=== PATIENT | female | born 1970 | race Asian ===

== ENCOUNTER 2020-10-08 10:28 | Day surgery (SDC) | payer OTHER ==
[2020-10-02 13:12] LABS: Hematocrit 36.9 % (30.3-42.9); Mean Corpuscular HGB Conc 33 % (30-34); Mean Corpuscular Volume 85 fl (79-97); Platelet Count 189 K/mm3 (140-440); Red Blood Count 4.32 M/mm3 (3.65-5.03); Red Cell Distribution Width 15.4 % (13.2-15.2)
[2020-10-02 14:26] LABS: Total Cells Counted 100
[2020-10-02 14:28] LABS: Anisocytosis 1+
[2020-10-02 14:29] LABS: Ovalocytes Few; Platelet Estimate Consistent w Auto; Poikilocytosis 1+
--- NOTE | 2020-10-05 19:19 | History and Physical Report ---
History of Present Illness Date of examination: 10/02/20 Chief complaint: Menorrhagia History of present illness: Past History : 5 Term Births: 4 Living Children: 4 Spont. Ab: 1 # 1 Delivery date: 1997 Comments: x3 [id number] [employer]IST History Operations: BTL Appendectomy Breast Biopsy: (2007)fibroadenoma; removed 2010 Dr.Timbert storm Abnormal PAP: positive Infection History HIV Risk Eval: yes Hx of STD: None Active Medications (reviewed today): VITAMIN D (CHOLECALCIFEROL) 25 MCG (1000 UT) ORAL CAPSULE (CHOLECALCIFEROL) EXCEDRIN MIGRAINE TABLET ([id number] TABS) HEMAX TABLET ([id number] TABS) Current Allergies (reviewed today): No known allergies Past Medical History: Reviewed history from 02/27/2020 and no changes required: h/o Anemia s/p 5 weeks of iron infusion low WBC h/o +Covid-19(12/2019) Past Surgical History: Reviewed history from 01/05/2013 and no changes required: BTL Appendectomy Breast Biopsy: (2007)fibroadenoma; removed 2010 left Family History Summary: Reviewed history Last on 04/17/2020 and no changes required:10/05/2020 Other Family Member - Has No Family History of Uterine Cancer - Entered On: 04/12/2017 Other Family Member - Has No Family History of Small Bowel Cancer - Entered On: 04/12/2017 Other Family Member - Has No Family History of Stomach Cancer - Entered On: 04/12/2017 Other Family Member - Has No Family History of Pancreatic Cancer - Entered On: 04/12/2017 Other Family Member - Has No Family History of Ovarvian Cancer - Entered On: 04/12/2017 Other Family Member - Has No Family History of Kidney/Urinary Tract Cancer - Entered On: 04/12/2017 Other Family Member - Has No Family History of DVT/PE on OCP - Entered On: 04/12/2017 Other Family Member - Has No Family History of Colon Cancer - Entered On: 04/12/2017 Other Family Member - Has No Family History of Brain Cancer - Entered On: 04/12/2017 Other Family Member - Has No Family History of Breast Cancer - Entered On: 04/12/2017 Other Family Member - Has No Family History of Biliary Tract Cancer - Entered On: 04/12/2017 General Comments - FH: No Family History of Breast Cancer No Family History of Colon Cancer No Family History of Ovarian Cancer No Family History of DVT/PE on OCP Social History: Reviewed history from 03/26/2017 and no changes required: Patient is Smoking History: Patient has never smoked. Risk Factors: Smoked Tobacco Use: Never smoker Smokeless Tobacco Use: Never Passive smoke exposure: no Drug use: no HIV high-risk behavior: yes Alcohol use: no Exercise: no Seatbelt use: 100 % PAP Smear History: Date of Last PAP Smear: 04/17/2020 Mammogram History: Date of Last Mammogram: 04/23/2020 Previous Tobacco Use: Signed On 07/04/2020 Smoked Tobacco Use: Never smoker Smokeless Tobacco Use: Never Passive smoke exposure: no Drug use: no HIV high-risk behavior: yes Previous Alcohol Use: Signed On 07/04/2020 Alcohol use: no Exercise: no Seatbelt use: 100 % PAP Smear History: Date of Last PAP Smear: 04/17/2020 Mammogram History: Date of Last Mammogram: 04/23/2020 Physical Exam Appearance: well developed, well nourished, no acute distress Other Exams Lungs: no rales, rhonchi, or wheezes Heart: S1, S2, no murmur, rub, or gallop Genitourinary Exam Uterus: deferred for EUA Impression & Recommendations: Problem # 1: Menorrhagia (ICD-626.2) ([id number]-P52.0) Diagnosis explained to patient . Questions answered. Discussed with patient various medical and surgical therapies common for treatment: Hormonal/medical therapy,endometrial ablation or hysterectomy. She desires hysteroscopy with dilation and curettage. She declines ablation at this time. Consent reviewed and signed . Possible laparoscopy or laparotomy explained to patient. The risks and alternatives for this surgery were reviewed with the patient. She was informed of possible bleeding, infection, injury to bowel, bladder, ureters or other adjacent organs. The patient was instructed/informed the following: The normal length of hospital stay for this procedure. Nothing to eat or drink after midnight the evening prior to surgery. Pre-op instruction sheets given. Wound care instructions given. Infection precautions reviewed, patient to call for any signs or symptoms of infection. The usual discomforts associated with this procedure were detailed. Proper use of pain medicines was reviewed. Patient was given ample opportunity to have all her questions answered before signing informed consent. Medications and Allergies Allergies Allergy/AdvReac Type Severity Reaction Status Date / Time No Known Allergies Allergy Unverified 10/01/20 18:42 Home Medications Medication Instructions Recorded Confirmed Last Taken Type Iron [Iron 18 MG TAB] 18 mg PO QDAY 10/01/20 10/01/20 Unknown History Active Meds: Active Medications Cefazolin Sodium (Ancef/Sterile Water 2 Gm/20 Ml) 2 gm in 20 mls @ 80 mls/hr IV PREOP NR; Protocol Exam Vital Signs Temp Pulse Resp BP Pulse Ox 98.2 F 62 18 119/76 100 10/02/20 13:00 10/02/20 13:00 10/02/20 13:00 10/02/20 13:00 10/02/20 13:00 Results - Labs 10/02/20 13:10 Assessment and Plan - Patient Problems (1) Menorrhagia Status: Acute
[~2020-10-08 10:28] MED LIST: LACTATED RINGERS 1,000 ML IV SCH; MIDAZOLAM 2 MG/2 ML INJ IV NR; ceFAZolin/Water 2 GM/20 ML 2 GM/20 ML SYRINGE IV NR
[2020-10-08] MEDS ORDERED: ONDANSETRON 4 MG/2 ML INJ IV PRN (11:31)
--- NOTE | 2020-10-08 11:31 | Anesthesia Day of Surgery ---
Anesthesia Day of Surgery - Day of Surgery Patient Examined: Yes Patient H&P Reviewed: Yes Patient is NPO: Yes
--- NOTE | 2020-10-08 11:31 | Anesthesia Consultation ---
Anesthesia Consult and Med Hx Date of service: 10/08/20 - Airway Anesthetic Teeth Evaluation: Good ROM Head & Neck: Adequate Mental/Hyoid Distance: Adequate Mallampati Class: Class II Intubation Access Assessment: Probably Good - Pulmonary Exam CTA: Yes - Cardiac Exam Cardiac Exam: RRR - Pre-Operative Health Status ASA Pre-Surgery Classification: ASA1 Proposed Anesthetic Plan: General - Pulmonary Hx Smoking: No Hx Respiratory Symptoms: No - Cardiovascular System Hx Hypertension: No - Central Nervous System CVA: No - Gastrointestinal Hx Gastroesophageal Reflux Disease: No - Endocrine Hx Renal Disease: No Hx Liver Disease: No Hx Insulin Dependent Diabetes: No Hx Non-Insulin Dependent Diabetes: No Hx Thyroid Disease: No - Other Systems Hx Obesity: No - Additional Comments Anesthesia Medical History Comments: Mild PONV w/ anesthetic many years ago
[2020-10-08] MEDS ORDERED: propofoL 200 MG/20 ML VIAL IV ONE ×2 (13:48→14:12)
[2020-10-08] MEDS ORDERED: LIDOCAINE PF 100 MG/5 ML (CARDIAC SYRINGE) IV ONE (14:14)
[2020-10-08] MEDS ORDERED: SODIUM CHLORIDE 0.9% IRR 1,500 ML BOTTLE IR ONE (14:29)
[2020-10-08] MEDS ORDERED: dexAMETHasone 20 MG/5 ML VIAL ONE (14:32)
[2020-10-08] MEDS ORDERED: GLYCOPYRROLATE 0.4 MG/2 ML INJ ONE (14:32)
[2020-10-08] MEDS ORDERED: ONDANSETRON 4 MG/2 ML INJ ONE (14:32)
[2020-10-08] MEDS ORDERED: SODIUM CHLORIDE 0.9% 1000 ML IV SOLN IR ONE ×2 (14:37→14:38)
[2020-10-08] MEDS ORDERED: SODIUM CHLORIDE 0.9% IRRIG SOLN 2000 ML IR ONE (14:37)
--- NOTE | 2020-10-08 14:58 | Operative Report ---
Operative Report Operative Report: Date: 10/08/2020 PREOPERATIVE DIAGNOSES: 1. Menorrhagia 2. Endometrial polyp POSTOPERATIVE DIAGNOSES: 1. Menorrhagia PROCEDURE PERFORMED: 1. Cervical dilation 2. Hysteroscopy 2. Uterine curettage 3. Endometrial ablation using NovaSure device ANESTHESIA: General ESTIMATED BLOOD LOSS: Less than minimal cc. URINE OUTPUT: 25 mL Uterine cavity length: 5 cm Uterine cavity width: 4.5 cm Wattage: 124 W Time: 1 minute; 32 secomds INDICATIONS: This is a 49-year-old female that presents menorrhagia possible endometrial polyp on sonohysterogram. PROCEDURE: The patient was seen in the preoperative suite. Expected procedure and postoperative course discussed with her. She was taken to the operative suite where general anesthesia was performed. She was placed in a dorsal lithotomy position. . A bimanual exam was done, the uterus was found to be retroverted. She was prepped and draped in the normal sterile fashion. Timeout was performed. The bladder was drained of approximately 25 mL of clear yellow urine with a red rubber catheter. The cervix and vagina were grossly normal with no obvious masses or deformities. A bivalve operative speculum was placed in the vagina and the anterior lip of the cervix was grasped with the single- tooth tenaculum. The uterus was sounded to 10 cm. The cervix was progressively dilated to allow the operative hysteroscope. Under direct visualization, the ostia were within normal limits. The endometrial lining appeared thickened, there was no obvious evidence of malignancy or uterine perforation. The hysteroscope was removed and a small sharp curette was placed intrauterine very carefully using anterior wall for guidance. Endometrial curettings were obtained. The endometrial sampling was placed on Telfa pad and sent to Pathology for evaluation, permanent. The hysteroscope was introduced again, no evidence of perforation was noted. The cervical length was measured to be 5 cm. The NovaSure device was set at 5 cm corresponding to the length of the uterine cavity. The array of the NovaSure device was released. The array appeared to be intact and the device appeared to be operating appropriately. The array was placed back into the shaft of the NovaSure and the device was introduced through the cervix to the fundus of the uterus. The array was released and the device was locked. With appropriate and gentle maneuvering of the device, the width of the uterus measured to 4.5 cm. Once the integrity of the uterus was confirmed, ablation was performed using 124 ballesteros of energy for 1 minute and 32 seconds. The device was unlocked the array was retracted back into the shaft and the device was removed. The hysteroscope was reintroduced into the uterus where a uniform and appropriate ablation of all surfaces was noted. Small area of denuded tissue was noted the fundus of the uterus. There was no evidence of perforation. At this point procedure was ended. The hysteroscope was removed. The tenaculum and speculum were removed. The cervix was found to be hemostatic. The Padron was noted to drain clear yellow urine into the catheter. At which point the catheter was removed. Counts were correct. Patient was taken to the PACU stable. All specimens were sent to pathology in formalin permanent. Distention fluid: Normal saline Deficit: 200 mL
--- NOTE | 2020-10-08 15:07 | Discharge Summary ---
Providers - Providers Date of discharge: 10/08/20 Attending physician: SATNAM VILCHIS Primary care physician: INDRA HARRIS Hospitalization Condition: Good Procedures: Hysteroscopy D&C, endometrial ablation with the Novasure device Hospital course: Normal Disposition: DC-01 TO HOME OR SELFCARE - Discharge Diagnoses (1) Menorrhagia Status: Acute Core Measure Documentation - Palliative Care Palliative Care/ Comfort Measures: Not Applicable - Core Measures Any of the following diagnoses?: none Exam - Constitutional Vitals: Temp Pulse Resp BP Pulse Ox 98.4 F 59 L 16 121/76 100 10/08/20 11:00 10/08/20 11:00 10/08/20 11:00 10/08/20 11:00 10/08/20 11:00 General appearance: Present: no acute distress - Respiratory Respiratory effort: normal - Cardiovascular Rhythm: regular Plan Activity: other (No sex) Weight Bearing Status: Full Weight Bearing Diet: regular Special Instructions: no heavy lifting (greater than 25lbs) Follow up with: INDRA HARRIS MD [Primary Care Provider] - 7 Days SATNAM VILCHIS MD [Staff Physician] - (as scheduled) Prescriptions: RX: Ibuprofen [Motrin 800 MG tab] 800 mg PO Q8HR PRN #30 tablet PRN Reason: Mild Pain Unrelieved By Apap RX: oxyCODONE /ACETAMINOPHEN [Percocet 5/325 mg] 1 - 2 tab PO Q6HR PRN #7 tablet PRN Reason: Pain
[2020-10-08] MEDS: fentaNYL 100 MCG/2 ML INJ IV PRN ×2 (15:09→15:20)
[2020-10-08 16:36] VITALS: BP 124/80
--- NOTE | 2020-10-08 16:38 | Post Anesthesia Evaluation ---
- Post Anesthesia Evaluation Patient Participated: Yes Airway Patent: Yes Stable Respiratory Function: Yes Nausea/Vomiting: No Temp > 96.8F: Yes Pain Manageable: Yes Adequeate Hydration: Yes Anesthesia Complications: No
== END 2020-10-08 16:25 | disposition home or self-care (01) ==
LOC: OR 10:28
PROVIDERS: ATTEND Obstetrics & Gynecology
DX: N92.0 Excessive and frequent menstruation with regular cycle (principal); N84.0 Polyp of corpus uteri; G43.909 Migraine, unspecified, not intractable, without status migrainosus; D64.9 Anemia, unspecified; Z90.49 Acquired absence of other specified parts of digestive tract; Z98.891 History of uterine scar from previous surgery; Z72.89 Other problems related to lifestyle; Z98.890 Other specified postprocedural states; Z79.899 Other long term (current) drug therapy
CPT/HCPCS: 36415; 58563; 81025; 85007; 85025; 88305; A4217; J0690; J1100; J2001; J2250; J2405; J2704; J3010; J7120; J7030